=== PATIENT | male | born 1940 | race Caucasian/White ===

== ENCOUNTER 2020-06-26 22:18 | Emergency (ER) | payer MEDICARE, SELFPAY ==
[2020-06-26 22:19] VITALS: BP 141/78; PULSE 79; RESP 18; TEMP 37.2; O2SAT 95; BMI 34.9
--- NOTE | 2020-06-26 22:29 | EKG12_ITS ---
Test Reason : FALL Blood Pressure : / mmHG Vent. Rate : 082 BPM Atrial Rate : 082 BPM P-R Int : 164 ms QRS Dur : 080 ms QT Int : 372 ms P-R-T Axes : 043 056 041 degrees QTc Int : 434 ms Normal sinus rhythm Normal ECG Confirmed by MURTAZA DEWITT, ANDREW ([id number]), tape editor ELLIS HAYDEN ([id number]) on 07/05/2020 10:16:36 AM Referred By: DR GARCIA Confirmed By:KAIT HAUSER MD
--- NOTE | 2020-06-26 22:29 | CT_ITS ---
STUDY: CT BRAIN WITHOUT CONTRAST REASON FOR EXAM: Male, 79 years old. S/P FALL HITTING POSTERIOR HEAD ON CONCRETE, C/O VERTIGO RADIATION DOSAGE (If Supplied By Facility): CTDIvol = ( 44.99 ) mGy, DLP = ( 897.35 ) mGycm TECHNIQUE: Transaxial CT imaging of the brain was performed without administration of intravenous contrast material. Individualized dose optimization techniques were used for this CT. COMPARISON: 06/20/2017 FINDINGS: Normal soft tissue structures. Normal calvarium. There is mild cerebral atrophy with widening of the extra-axial spaces and ventricular dilatation. There are areas of decreased attenuation within the white matter tracts of the supratentorial brain, consistent with microvascular disease changes. Normal basal ganglia and thalami. Normal brainstem. There is mild cerebellar atrophy. There is no intracranial hemorrhage. There are no findings of an acute ischemic infarction. Normal visualized paranasal sinuses. CT/Brain/Head without Contrast IMPRESSION: Chronic involutional changes of the brain. No acute abnormalities. Electronically Signed: Benton Linares MD at 23:03 EST , Service support ,
--- NOTE | 2020-06-26 22:30 | CT_ITS ---
STUDY: CT CERVICAL SPINE WITHOUT CONTRAST REASON FOR EXAM: Male, 79 years old. S/P FALL HITTING POSTERIOR HEAD ON CONCRETE, C/O VERTIGO RADIATION DOSAGE (If Supplied By Facility): CTDIvol = ( 24.51 ) mGy, DLP = ( 518.69 ) mGycm TECHNIQUE: High resolution transaxial imaging was performed without contrast material. Sagittal and coronal images were reconstructed. Individualized dose optimization techniques were used for this CT. COMPARISON: None FINDINGS: No definite acute fracture/dislocation. The cervical junction is intact. C1-C2 articulation is intact. Curvature is within normal limits. There is normal alignment. Facet joints are intact at all levels bilaterally. No jumped facets. There is multilevel spondyloarthropathy. Multilevel degenerative disc disease seen. Multilevel loss of disc height. Multilevel posterior marginal osteophytes and disc bulges. Multilevel neural foraminal narrowing. Probable bone island in C3 and C5. Visualized paraspinal soft tissues and structures are unremarkable. CT/Spine Cervical without Contras IMPRESSION: There is no definite acute fracture/dislocation. Degenerative changes. Electronically Signed: Benton Linares MD at 23:10 EST , Service support ,
--- NOTE | 2020-06-26 22:47 | ED.DCSUM_ITS ---
History of Present Illness <Jax Blankenship - Last Filed: 06/27/20 00:10> Informant: Patient Onset: Today Context: Sudden Onset Timing: Continuous Current Severity: Moderate Maximum Severity: Moderate Narrative: The patient presents after mechanical fall. He states that he was in his home. He states that he got dizzy describes a sensation of motion and fell backwards. He struck his head and bit his tongue. He does not think he lost consciousness. He states this will happen from time to time. He states he suffered a laceration to the back of his head. He denies any trouble speaking or swallowing. He denies any change in gait. He denies other injury. He states he is otherwise been in his normal state of health. He does not take anticoagulants. Prior similar symptoms: No Recent Illness/Hospitalization: No <Richard Velasco - Last Filed: 06/27/20 00:50> Chief Complaint: Fall Past Medical History <Jax Blankenship - Last Filed: 06/27/20 00:10> Prior records reviewed: Yes Past Medical History: - - Hypertension, diabetes Surgical History: noncontributory Smoking Status: Former smoker Alcohol: Rare <Richard Velasco - Last Filed: 06/27/20 00:50> - Allergies and Home Meds Allergies/Adverse Reactions: Allergies No Known Allergies Allergy (Verified 06/26/20 22:22) Primary Care Physician: Waaqs Gallegos DO [Primary Care Provider] - 10 Day for suture removal Review of Systems General: Denies: Chills, Fever, Sweats Eyes: Denies: Visual changes - bilaterally, Diplopia ENT: Denies: Rhinorrhea, Sore throat Cardiovascular: Denies: Chest pain, Palpitations Respiratory: Denies: Dyspnea, Cough, Dyspnea on exertion Gastrointestinal: Denies: Abdominal pain, Nausea, Vomiting, Diarrhea, Melena, Hematochezia Genitourinary: Denies: Dysuria, Hematuria, Frequency Musculoskeletal: Denies: Back pain, Extremity Pain Skin: Denies: Rash, Wounds Neurological: Denies: Headache, Weakness, Numbness <Richard Vealsco Last Filed: 06/27/20 00:50> Physical Exam Vital Signs/Narrative: Vital Signs Temp Pulse Resp BP Pulse Ox 06/26/20 22:19 98.9 F 79 18 141/78 H 95 <Jax Blankenship - Last Filed: 06/27/20 00:10> Vital Signs/Narrative: Vital Signs Temp Pulse Resp BP Pulse Ox 06/26/20 22:19 98.9 F 79 18 141/78 H 95 Inital Vital Signs reviewed: Yes General: Well nourished, Well developed, No Acute Distress Head: Normocephalic, Trauma - 6 cm laceration in the midline of the posterior occiput vertically oriented. Eyes: Perrl, EOMI ENT: Moist mucous membranes, No rhinorrhea Neck: Supple, Nontender Cardiovascular: Regular rate, Regular rhythm, No murmurs Respiratory: No distress, CTA bilaterally, Chest nontender Abdomen: Soft, Nontender, Nondistended, Normal bowel sounds Back: Nontender, Normal Inspection Extremities: Nontender, No edema Skin: Normal color, No rash Neurological: Alert, Oriented x3, Cranial nerves II-XII grossly intact, Normal Strength, Normal Sensation Psychological: Normal affect, Normal Mood <Richard Velasco - Last Filed: 06/27/20 00:50> Diagnostic/Tx/Re-eval Clinical Impression(s) from Imaging Studies Brain CT 06/26/20 22:29 IMPRESSION: Chronic involutional changes of the brain. No acute abnormalities. Electronically Signed: Benton Linares MD at 23:03 EST , Service support , Cervical Spine CT 06/26/20 22:30 IMPRESSION: There is no definite acute fracture/dislocation. Degenerative changes. Electronically Signed: Benton Linares MD at 23:10 EST , Service support , - Medical Decision Making Patient presents after a fall. He states that he was vertiginous and then fell. His neurologic exam is reassuring. He does have laceration on the posterior occiput. Patient underwent CT head and neck which were both unremarkable for acute process. Screening labs were obtained and were negative. I do not feel the patient had a seizure. I do feel that this is likely secondary to vertigo. His wound was anesthetized and repaired. Please see that note. Patient was counseled local wound care and reasons to return. He will be discharged home. Impression 1. Vertigo 2. Scalp laceration with repair <Richard Velasco - Last Filed: 06/27/20 00:50> Procedures - Lacerations No standard instances Length: 5 ft - 5 cm highly irregular laceration on the posterior scalp. The skin has been ripped into a very thin pieces and is gaping by about a half a centimeter. Wound was locally anesthetized using 1% lidocaine with epinephrine. It was washed with Shur-Clens. Some light thin skin needed to be debrided. It was closed using a total of 5 simple erupted 3-0 Ethilon sutures. Depth: Sub Q Prep: Shure-Clens Laceration repair: Debrideded, Irrigated, Lidocaine with epi Irrigated (ml): 150 Number of Sutures/[place]: 5 Suture Information: Ethilon <Jax Blankenship - Last Filed: 06/27/20 00:10> ED Disposition <Jax Blankenship - Last Filed: 06/27/20 00:10> <Richard Velasco - Last Filed: 06/27/20 00:50> - Plan for ED Patient: Instructions: ED Laceration: All Closures Referrals: Waqas Gallegos DO [Primary Care Provider] - 10 Day for suture removal
--- NOTE | 2020-06-26 22:48 | ED.RN ---
NO OLD EKGS IN MUSE
[2020-06-26 22:52] LABS: Absolute Lymphocyte Count 3.08 X10^3/uL (0.83-4.51); Basophil# 0.06 X10^3/uL; Basophil% 0.6 % (0-1); Eosinophils% 1.8 % (0-5); Hematocrit 45.7 % (40-54); Hemoglobin 15.3 g/dL (13.0-16.5); Lymphocyte # 3.08 X10^3/ul (4.0); Lymphocyte % 28.3 % (19-41); Mean Corp Hgb Conc 33.5 g/dL (32-36); Mean Corpuscular Hgb 30.8 pg (27.0-32.0); Mean Corpuscular Volume 92.1 fL (80-94); Mean Platelet Vol. 10.4 fl (6.2-12.0); Monocyte# 1.48 X10^3/uL; Monocyte% 13.6 % (0-10); NRBC Flagged by Analyzer 0 % (0-5); Neutrophil # 5.97 X10^3/uL (2.7-7.7); Platelet Count 392 K/mm3 (150-450); RBC Distribution Width CV 12.4 % (11.6-14.6); RBC Distribution Width SD 41.4 fl (35.1-43.9); Red Blood Count 4.96 M/mm3 (4.6-6.2); White Blood Count 10.9 K/mm3 (4.4-11.0)
[2020-06-26 23:08] LABS: ALB/GLOB Ratio 0.8 RATIO (0.9-2.4); AST(SGOT) 20 U/L (15-37); Alanine Aminotransfer ALT/SGPT 28 U/L (16-61); Albumin, Serum 3.6 g/dL (3.2-5.0); Alkaline Phosphatase 79 U/L (45-117); Anion Gap 6 (5-15); BUN 25 mg/dL (7-18); BUN/Creat Ratio 22.7 RATIO (10-20); Calcium,Total 9.2 mg/dL (8.5-10.1); Chloride 101 mmol/L (98-107); EST Glomerular Filtration Rate 69 mL/min (>60); Est Glom Filt Rate - Afr Amer 83 mL/min (>60); Globulin 4.3 g/dL (2.2-4.2); Glucose 229 mg/dL (74-106); Potassium 4.1 mmol/L (3.5-5.1); Protein, Total 7.9 g/dL (6.4-8.2); Sodium Level 138 mmol/L (136-145)
[2020-06-26] MEDS: Lidocaine 1% /Epi 1:100 (20ml) 20 ML Vial INFILT (23:12)
[2020-06-26] MEDS: Acetaminophen 500 MG Tablet 1000 MG PO (23:12)
[2020-06-27 00:18] VITALS: BP 145/72; PULSE 82; RESP 19; O2SAT 94
[2020-06-27 00:51] VITALS: BP 138/67; PULSE 82; RESP 18; O2SAT 98
== END 2020-06-27 01:05 | disposition home or self-care (01) ==
LOC: ED 06-27 00:13
PROVIDERS: Emergency Provider Emergency Medicine; PCP Family Medicine
DX: R42 Dizziness and giddiness (principal); S01.01XA Laceration without foreign body of scalp, initial encounter; X58.XXXA Exposure to other specified factors, initial encounter; Y93.9 Activity, unspecified; Y92.009 Unspecified place in unspecified non-institutional (private) residence as the place of occurrence of the external cause; Y99.9 Unspecified external cause status; E11.9 Type 2 diabetes mellitus without complications; I10 Essential (primary) hypertension; Z79.84 Long term (current) use of oral hypoglycemic drugs; Z87.891 Personal history of nicotine dependence
CPT/HCPCS: 12002; 70450; 72125; 80053; 85025; 93005; 99285; A4216